=== PATIENT | female | born 2000 | race Caucasian/White ===

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

== ENCOUNTER → 2020-10-15 | Outpatient (REF) | payer OTHER ==
[~2020-10-15] MED LIST changes: +GLYCOPYRROLATE PO
== END ==
LOC: M PLALAB 07:42
PROVIDERS: ATTEND Nurse Practitioner Women's Health
DX: N89.8 Other specified noninflammatory disorders of vagina (principal); Z11.3 Encounter for screening for infections with a predominantly sexual mode of transmission

== ENCOUNTER 2021-03-06 17:20 | Emergency (ER) | payer OTHER ==
[~2021-03-06] VITALS: Ht 160 cm; Wt 67.1 kg
[2021-03-06 17:21] VITALS: BP 119/58
--- OUTSIDE RECORDS SUMMARY | 2021-03-06 17:28 | CCD ---
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 Bacitracin Zinc Topical 112:43 11/20/2020 Dose: 1 application Ointment Topical applicationGino Gregory R.N. Name Value Range Interpretation Code Description Data Romy rce(s) Supporting Document(s) ID Date Data Source [id number] 11/20/2020 12:04:00 PM EDT [facility] 1 General Instructions [facility] Emergency Department [address] [place], [place] [id number] Phone #: ext- [phone] 11/20/2020 12:04 Patient: ERICA LOPEZ Sex: F : 2000 Age: 20ySingle first degree thermal burn to the left index finger, to the left middle finger, to the left ring finger and tothe left little finger. TOTAL BSA of burn = less than 10% (approximately). BSA of 1st degree burn = lessthan 10% (approximately). BSA of 2nd degree burn = 0% BSA of 3rd degree burn = 0%.INSTRUCTIONSProtect area of burn and keep clean. Change dressing daily. Keep wounds dry. You may wash woundsbriefly, then dry. Do not work today, tomorrow ( may return to work on Monday).Warnings: GENERAL WARNINGS: Return or contact your physician immediately if your conditionworsens or changes unexpectedly, if not improving as expected, or if other problems arise. Specificallyreturn if pain or fever worsens.Your Current Medications: Your current home medications have been reviewed.CONTINUE TAKING THE FOLLOWING MEDICATIONS:Nexplanon Subcutaneous.Prescription Medications:bacitracin 500 unit/gram topical ointment Apply 1 a small amount twice a day for 10 days -- Dispense 1tube. Refills: 0. Substitution permitted.[facility] [address] [phone]. .aspirin 325 mg tablet Take 1 tablet four times a day for 10 days -- PP. Dispense 40 tablet. Refills: 0.Substitution permitted.[facility] [address] [place], [place] [phone]. .Follow-up:Follow up with your doctor as needed. Reason for referral: ev aluation and treatment. Summary of careprovided to patient.Understanding of the discharge instructions verbalized by patient. 2 General Instructions [facility] Emergency Department [address] [place] [address] Phone #: ext- [phone] 11/20/2020 12:04 Patient: ERICA LOPEZ Sex: F : 2000 Age: 20yDo not work today, tomorrow (may return to work on Monday).(Electronically signed by EDNA Herring 11/20/2020 21:44) Name Value Range Interpretation Code Description Data Romy rce(s) Supporting Document(s) ID Date Data Source [id number] 11/20/2020 12:04:00 PM EDT [facility] 1 Clinical Report - Nurses [facility] Emergency Department [address] [place] [address] Phone #: ext- [phone] 11/20/2020 12:04 Patient: ERICA LOPEZ Sex: F : 2000 Age: 20yTRIAGEAcuity: LEVEL 4.Chief Complaint: BURN TO LEFT HAND, LEFT INDEX FINGER, LEFT MIDDLE FINGER, LEFT RINGFINGER and LEFT LITTLE FINGER FROM HOT LIQUID.Alert. No acute distress.Location of injuries: left index finger, left middle finger, left ring finger and left little finger. Occurred 11:5607. ( Pt was at work and was pouring gravy when she spilled some on her left hand. 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 SEPSIS SCREEN NEGATIVE. No suspected or confirmedsigns of infection present.APRYL COMA SCORE: 15- eyes open- spontaneous (4); best verbal response- oriented (5); bestmotor response- obeys commands (6). --12:14 11/20/20 Faiza Brown R.N.12:10 11/20/20. BP: 131/71. MAP: 91. HR: 72. RR: 16. O2 saturation: 100% on room air. Pain level now:08/22. --12:14 11/20/20 Faiza Brown R.N.12:16 11/20/20. Temp: 98.2 F (oral). --12:17 11/20/20 Faiza Brown R.N.Weight: 63.5 kg stated. Height/Length: 63 inches Per Patient. BMI: 24.8. --12:09 11/20/20 Faiza Brown R.N.MedicationsNexplanon Subcutaneous. --12:15 11/20/20 Faiza Brown R.N.AllergiesNo Known Drug Allergy. --12:15 11/20/20 Faiza Brown R.N.PROBLEMS:no known problems.Medication/allergy information source: the patient. --12:14 11/20/20 Faiza Brown R.N.ADDITIONAL SURGERIES: 2 Clinical Report - Nurses [facility] Emergency Department [address] [place] [address] Phone #: ext- [phone] 11/20/2020 12:04 Patient: ERICA LOPEZ Sex: F : 2000 Age: 20y Tonsillectomy. --12:15 11/20/20 Faiza Brown R.N. History PAST MEDICAL HX: Tetanus status: up-to-date. SOCIAL HX: Never smoker. No alcohol use or drug use. She was offered HIV testing but declined. Patient education was provided. She was offered hepatitis C testing but declined. Patient education was provided. She has not traveled outside the [place] Infectious disease exposure: No infectious disease exposure. (COVID screen negative). Patient is not a known carrier of tuberculosis, hepatitis, HIV, MRSA or VRE. Patient is not a known carrier of CRE. SELF HARM ASSESSMENT: Self harm assessment was performed. The patient answe red "no" to the question(s) "Do you have thoughts of harming or killing yourself?", "Do you have a plan for harming or killing yourself?" and "Have you recently had thoughts about harming or killing others?". ABUSE ASSESSMENT: Abuse assessment. The patient had positive responses to the question(s) "Do you feel safe in your home?" (yes). Abuse denied. No suspicion of abuse. No report of abuse. NUTRITIONAL RISK ASSESSMENT: The nutritional risk assessment revealed no deficiencies. FUNCTIONAL ASSESSMENT: Functional assessment: no impairments noted. LEARNING NEEDS ASSESSMENT: The learning needs assessment revealed no barriers. FALL RISK ASSESSMENT: Fall risk assessment completed. No risk factors identified. SKIN INTEGRITY ASSESSMENT: Skin integrity risk assessment completed. No skin integrity risk identified. --12:14 11/20/20 Faiza Brown R.N. Interventions Identification band on patient. --12:14 11/20/20 Faiza Brown R.N.PHYSICAL ASSESSMENTGENERAL / NEURO / PSYCH: Alert. Oriented X 4. Appears in no acute distress.RESPIRATORY: Respirations not labored.EXTREMITIES: Skin intact on the extremities. Left ring finger: 1st degree superficial burn. Left midd lefinger. Left index finger. --12:44 11/20/20 Gino Gregory R.N.NURSING PROGRESS NOTESPatient gowned. Reassurance given. Three patient identifiers checked. Call light placed in reach. Siderails up x 2. Bed placed in lowest position. Brakes of bed on. Patient ready for evaluation- PA notified.--12:15 11/20/20 Faiza Brown R.N. 12:43 11/20/2020 Bacitracin Zinc Topical Ointment 1 application given. --12:43 11/20/20 Gino Gregory R.N. 3 Clinical Report - Nurses [facility] Emergency Department [address] [place] [address] Phone #: ext- [phone] 11/20/2020 12:04 Patient: ERICA LOPEZ Sex: F : 2000 Age: 20yDISPOSITION / DISCHARGE No learning barriers present. Discharge instructions provided and reviewed with the patient. Patient verbalized understanding. Written instructions provided in Montenegrin. The patient was discharged by the physician floral assistant. She was discharged home. She left ambulatory and via private vehicle. Patient driving. --12:50 11/20/20 Gino Gregory R.N. 12:49 11/20/20. BP: 122/64. MAP: 83. HR: 62. RR: 16. O2 saturation: 98%. Temp: def erred. Pain level now: 06/24. --12:50 11/20/20 Gino Gregory R.N. Departure time: 12:50 11/20/2020. --12:50 11/20/20 Gino Gregory R.N.Locked/Released at 11/20/2020 12:51 by Gino Gregory R.N. Name Value Range Interpretation Code Description Data Romy rce(s) Supporting Document(s) ID Date Data Source [id number] 11/20/2020 12:04:00 PM EDT [facility] 1 Clinical Report - Physicians/Mid Levels [facility] Emergency Department [address] [place] [address] Phone #: ext- [phone] 11/20/2020 12:04 Patient: ERICA LOPEZ Sex: F : 2000 Age: 20y Time Seen: 12:30 11/20/2020. Arrived- By private vehicle. Historian- patient.HISTORY OF PRESENT ILLNESS Chief Complaint: BURN. The patient sustained a burn to the left upper extremity - left hand, left index finger, left middle finger, left ring finger and left little finger. It occurred at work. The injury was due to hot liquid (gravy). The patient complains of mild pain. There was no smoke inhalation. Patient did not fall.REVIEW OF SYSTEMSLast normal menstrual period unknown- nexplanon, denies . No difficulty breathing, chest pain,visual disturbance, hearing loss or numbness. No weakness, neck pain, nausea, easy bleeding orabrasions. No hematuria, spine pain or vomiting. No coughing up soot.PAST HISTORYProblems:no known problems. Additional Surgeries: Tonsillectomy. Medications: Nexplanon Subcutaneous. Allergies: No Known Drug All ergy.SOCIAL HISTORYNever smoker. No alcohol use or drug use.PHYSICAL EXAMVital Signs: 11/20/2020 12:10 BP: 131/71. MAP: 91. HR: 72. RR: 16. O2 saturation: 100% on room air.Pain level now: 4/10. Have been reviewed as normal. Oxygen saturation normal.Appearance: Alert. Oriented X3. No acute distress.Head: Head atraumatic.Eyes: Pupils equal, round and reactive to light. EOM intact. Conjunctivae and eyelids normal.ENT: Normal external inspection. Nares normal. Pharynx normal.Neck: Neck non-tender.CVS: Heart sounds normal.Respiratory: No respiratory distress. 2 Clinical Report - Physicians/Mid Levels [facility] Emergency Department [address] [place] [address] Phone #: ext- [phone] 11/20/2020 12:04 Patient: ERICA LOPEZ Sex: F : 2000 Age: 20y Abdomen: No visible injury. Back: No tenderness. Skin: No abrasions or lacerations. Left hand: small 1st degree burn dorsal aspect and volar aspect. Left small finger: small 1st degree burn volar aspect. Left ring finger: small 1st degree burn volar aspect. Left middle finger: small 1st degree burn volar aspect. Left index finger: small 1st degree burn volar aspect. No circumferential burn present, vesicles present or contamination present. Left Upper Extremity area: 1% BSA. Percent Total Body Surface Area Burned: 1%. Extremities: Extremities atraumatic. Neuro: Oriented X 3.PROGRESS AND PROCEDURESCourse of Care: 12:Nov 20 2020. Evaluation after observation. (Discussed superficial 1st degree burn,wound care. s/s of infection and pt is agreeable with dx and tx plan.). Patient counseled in person regarding the patient's stable condition, diagnosis and need for follow-up. Patient agrees with plan of care. 12:Nov 20 2020. Disposition: Discharged home in good and improved condition (:Nov 20 2020).CLINICAL IMPRESSION Single first degree thermal burn to the left index finger, to the left middle finger, to the left ring finger and to the left little finger. TOTAL BSA of burn = less than 10% (approximately). BSA of 1st degree burn = less than 10% (approximately). BSA of 2nd degree burn = 0% BSA of 3rd degree burn = 0%.INSTRUCTIONS Protect area of burn and keep clean. Change dressing daily. Keep wounds dry. You may wash wounds briefly, then dry. Do not work today, tomorrow (may return to work on Monday). Warnings: GENERAL WARNINGS: Return or contact your physician immediately if your condition worsens or changes unexpectedly, if not improving as expected, or if other problems arise. Specifically return if pain or fever worsens. Your Current Medications: Your current home medications have been reviewed. CONTINUE TAKING THE FOLLOWING MEDICATIONS: Nexplanon Subcutaneous. Prescription Medications: bacitracin 500 unit/gram topical ointment Apply 1 a small amount twice a day for 10 days -- Dispense 1 3 Clinical Report - Physicians/Mid Levels [facility] Emergency Department [address] [place] [address] Phone #: ext- [phone] 11/20/2020 12:04 Patient: ERICA LOPEZ [id number] Sex: F : 2000 Age: 20y tube. Refills: 0. Substitution permitted. [facility] [address] [place] [address] ; [place], [place] [phone]. . aspirin 325 mg tablet Take 1 tablet four times a day for 10 days -- PP. Dispense 40 tablet. Refills: 0. Substitution permitted. [facility] [address] [place] [address] ; [place], [place] [phone]. . Follow-up: Follow up with your doctor as needed. Reason for referral: evaluation and treatment. Summary of care provided to patient. Understanding of the discharge instructions verbalized by patient.(Electronically signed by EDNA Herring 11/20/2020 21:44) Name Value Range Interpretation Code Description Data Romy rce(s) Supporting Document(s) ID Date Data Source [id number] 11/18/2020 12:00:00 AM EDT [facility] Name Value Range Interpretation Code Description Data Romy rce(s) Supporting Document(s) SARS-CoV-2 RNA Resp Ql [place]+probe Not Detected [facility] This lab was ordered by [employer]- Employee and reported by [employer]. ID Date Data Source [id number] 11/13/2020 12:00:00 AM EDT [facility] Name Value Range Interpretation Code Description Data Romy rce(s) Supporting Document(s) SARS-CoV-2 RNA Resp Ql [place]+probe Not Detected [facility] This lab was ordered by [employer]- Employee and reported by [employer]. ID Date Data Source [id number] 11/12/2020 10:05:00 AM EDT [facility] Name Value Range Interpretation Code Description Data Romy rce(s) Supporting Document(s) SARS-CoV-2 Not Detected [facility] This lab was ordered by [employer] and reported by [employer]. ID Date Data Source [id number] 11/10/2020 09:00:00 AM EDT [facility] Name Value Range Interpretation Code Description Data Romy rce(s) Supporting Document(s) SARS-CoV-2 Not Detected [facility] This lab was ordered by [email or web address] and reported by [employer]. ID Date Data Source [id number] 11/06/2020 12:00:00 AM EDT [facility] Name Value Range Interpretation Code Description Data Romy rce(s) Supporting Document(s) SARS Not Detected [facility] This lab was ordered by [employer]- Employee and reported by [email or web address] [facility] [employer]. ID Date Data Source [id number] 11/05/2020 12:00:00 AM EDT [facility] Name Value Range Interpretation Code Description Data Romy rce(s) Supporting Document(s) SARS coronavirus 2 Ag Negative [facility] This lab was ordered by [employer] and rep orted by [employer]. ID Date Data Source [id number] 11/02/2020 12:00:00 AM EDT [facility] Name Value Range Interpretation Code Description Data Romy rce(s) Supporting Document(s) SARS coronavirus 2 Ag Negative [facility] This lab was ordered by [employer] and rep orted by [employer]. ID Date Data Source [id number] 10/23/2020 11:55:00 AM EDT [facility] Name Value Range Interpretation Code Description Data Romy rce(s) Supporting Document(s) SARS-CoV-2 Not Detected [facility] This lab was ordered by [email or web address] and reported by [employer]. ID Date Data Source [id number] 10/21/2020 12:00:00 AM EDT [facility] Name Value Range Interpretation Code Description Data Romy rce(s) Supporting Document(s) SARS coronavirus 2 Ag Negative [facility] This lab was ordered by [employer] and rep orted by [employer]. ID Date Data Source [id number] 10/16/2020 12:00:00 AM EDT [facility] Name Value Range Interpretation Code Description Data Romy rce(s) Supporting Document(s) SARS coronavirus 2 Ag Negative [facility] This lab was ordered by [employer] and rep orted by [employer]. ID Date Data Source [id number] 10/15/2020 12:00:00 AM EDT [facility] Name Value Range Interpretation Code Description Data Romy rce(s) Supporting Document(s) pos whiff eCW1 ([facility]) pos Clue Cells eCW1 ([facility]) 5.5 PH eCW1 ([facility]) neg Trichomoniads eCW1 ([facility]) neg Hypae eCW1 ([facility]) WET PREP eCW1 ([facility]) neg Lactobacillus eCW1 ([facility]) neg WBC eCW1 ([facility]) few RBC eCW1 ([facility]) ID Date Data Source CHLAMYDIA & GC DNA PROBES 10/15/2020 12:00:00 AM EDT eCW1 ([facility]) Name Value Range Interpretation Code Description Data Romy rce(s) Supporting Document(s) Negative Negative GC DNA PROBE eCW1 ([facility]) Negative Negative CHLAMYDIA DNA PROBE eCW1 ([facility]) ID Date Data Source [id number] 10/14/2020 06:00:00 PM EDT [facility] Name Value Range Interpretation Code Description Data Romy rce(s) Supporting Document(s) SARS-CoV-2 Not Detected [facility] This lab was ordered by [employer] and reported by [employer]. ID Date Data Source [id number] 10/12/2020 11:00:00 AM EDT [facility] Name Value Range Interpretation Code Description Data Romy rce(s) Supporting Document(s) SARS-CoV-2 Not Detected [facility] This lab was ordered by [employer] and reported by [employer]. ID Date Data Source [id number] 10/07/2020 10:43:00 AM EDT [facility] Name Value Range Interpretation Code Description Data Romy rce(s) Supporting Document(s) SARS-CoV-2 Not Detected [facility] This lab was ordered by [employer] and reported by [employer]. ID Date Data Source [id number] 10/06/2020 10:24:00 AM EDT [facility] Name Value Range Interpretation Code Description Data Romy rce(s) Supporting Document(s) SARS-CoV-2 Not Detected [facility] This lab was ordered by [employer] and reported by [employer]. ID Date Data Source [id number] 09/28/2020 09:52:00 AM EDT [facility] Name Value Range Interpretation Code Description Data Romy rce(s) Supporting Document(s) SARS-CoV-2 Not Detected [facility] This lab was ordered by [employer] and reported by [employer]. ID Date Data Source [id number] 09/23/2020 03:24:00 PM EDT [facility] Name Value Range Interpretation Code Description Data Romy rce(s) Supporting Document(s) SARS-CoV-2 Not Detected [facility] This lab was ordered by [employer] and reported by [employer]. ID Date Data Source [id number] 09/18/2020 12:00:00 AM EDT [facility] Name Value Range Interpretation Code Description Data Romy rce(s) Supporting Document(s) SARS coronavirus 2 Ag Negative [facility] This lab was ordered by [facility] and rep orted by [employer]. ID Date Data Source [id number] 09/16/2020 12:00:00 AM EDT [facility] Name Value Range Interpretation Code Description Data Romy rce(s) Supporting Document(s) SARS Not Detected [facility] This lab was ordered by [facility] for [employer]-EMPLOYEE and reported by [employer]. ID Date Data Source [id number] 09/09/2020 12:00:00 AM EDT [facility] Name Value Range Interpretation Code Description Data Romy rce(s) Supporting Document(s) SARS Not Detected [facility] This lab was ordered by [facility]- Employee and reported by [employer]. ID Date Data Source [id number] 09/07/2020 12:00:00 AM EDT [facility] Name Value Range Interpretation Code Description Data Romy rce(s) Supporting Document(s) SARS coronavirus 2 Ag Negative [facility] This lab was ordered by [facility] and rep orted by [employer]. ID Date Data Source [id number] 08/31/2020 12:00:00 AM EDT [facility] Name Value Range Interpretation Code Description Data Romy rce(s) Supporting Document(s) SARS coronavirus 2 Ag Negative [facility] This lab was ordered by [employer] and orted by [employer]. ID Date Data Source [id number] 08/26/2020 01:55:00 PM EDT [facility] Name Value Range Interpretation Code Description Data Romy rce(s) Supporting Document(s) SARS-CoV-2 Not Detected [facility] This lab was ordered by [email or web address] and reported by [employer]. ID Date Data Source [id number] 08/25/2020 12:00:00 AM EDT [facility] Name Value Range Interpretation Code Description Data Romy rce(s) Supporting Document(s) SARS coronavirus 2 Ag Negative [facility] This lab was ordered by [employer] and orted by [employer]. ID Date Data Source [id number] 08/19/2020 09:49:00 AM EDT [facility] Name Value Range Interpretation Code Description Data Romy rce(s) Supporting Document(s) SARS-CoV-2 Not Detected [facility] This lab was ordered by [email or web address] and reported by [employer]. ID Date Data Source [id number] 08/18/2020 12:00:00 AM EDT [facility] Name Value Range Interpretation Code Description Data Romy rce(s) Supporting Document(s) SARS coronavirus 2 Ag Negative [facility] This lab was ordered by [employer] and rep orted by [employer]. ID Date Data Source [id number] 08/14/2020 02:36:00 PM EDT [facility] Name Value Range Interpretation Code Description Data Romy rce(s) Supporting Document(s) SARS-CoV-2 Not Detected [facility] This lab was ordered by [email or web address] and reported by [employer]. ID Date Data Source [id number] 08/13/2020 01:51:00 PM EDT [facility] Name Value Range Interpretation Code Description Data Romy rce(s) Supporting Document(s) SARS-CoV-2 Not Detected [facility] This lab was ordered by [email or web address] and reported by [employer]. ID Date Data Source [id number] 08/10/2020 12:00:00 AM EDT [facility] Name Value Range Interpretation Code Description Data Romy rce(s) Supporting Document(s) SARS coronavirus 2 Ag Negative [facility] This lab was ordered by [facility] and rep orted by [facility]. ID Date Data Source [id number] 08/03/2020 12:00:00 AM EDT [facility] Name Value Range Interpretation Code Description Data Romy rce(s) Supporting Document(s) SARS coronavirus 2 Ag Negative [facility] This lab was ordered by [facility] and rep orted by [facility]. ID Date Data Source [id number] 07/29/2020 12:00:00 AM EDT [facility] Name Value Range Interpretation Code Description Data Romy rce(s) Supporting Document(s) SARS Not Detected [facility] This lab was ordered by [employer]- Employee and reported by [facility] [facility] [employer]. ID Date Data Source [id number] 07/27/2020 12:00:00 AM EDT [facility] Name Value Range Interpretation Code Description Data Romy rce(s) Supporting Document(s) SARS coronavirus 2 Ag Negative [facility] This lab was ordered by [facility] and rep orted by [employer]. ID Date Data Source [id number] 07/24/2020 12:00:00 AM EST [facility] Name Value Range Interpretation Code Description Data Romy rce(s) Supporting Document(s) SARS coronavirus 2 Ag Negative [facility] This lab was ordered by [facility] and rep orted by [employer]. ID Date Data Source [id number] 07/21/2020 12:00:00 AM EST [facility] Name Value Range Interpretation Code Description Data Romy rce(s) Supporting Document(s) SARS coronavirus 2 Ag Negative [facility] This lab was ordered by [facility] and rep orted by [facility]. ID Date Data Source [id number] 07/16/2020 12:00:00 AM EST [facility] Name Value Range Interpretation Code Description Data Romy rce(s) Supporting Document(s) SARS coronavirus 2 pcr Negative [facility] This lab was ordered by [facility] and rep orted by [facility]. ID Date Data Source [id number] 07/14/2020 12:00:00 AM EST [facility] Name Value Range Interpretation Code Description Data Romy rce(s) Supporting Document(s) SARS coronavirus 2 pcr Negative [facility] This lab was ordered by [facility] and rep orted by [facility]. ID Date Data Source [id number] 07/09/2020 12:00:00 AM EST [facility] Name Value Range Interpretation Code Description Data Romy rce(s) Supporting Document(s) SARS coronavirus 2 pcr Negative [facility] This lab was ordered by [facility] and rep orted by [facility]. ID Date Data Source [id number] 07/06/2020 12:00:00 AM EST [facility] Name Value Range Interpretation Code Description Data Romy rce(s) Supporting Document(s) SARS coronavirus 2 pcr Negative [facility] This lab was ordered by [facility] and rep orted by [facility]. ID Date Data Source [id number] 06/29/2020 12:00:00 AM EST [facility] Name Value Range Interpretation Code Description Data Romy rce(s) Supporting Document(s) SARS coronavirus 2 pcr Negative [facility] This lab was ordered by [facility] and rep orted by [facility]. ID Date Data Source [id number] 06/25/2020 12:00:00 AM EST [facility] Name Value Range Interpretation Code Description Data Romy rce(s) Supporting Document(s) SARS Not Detected [facility] This lab was ordered by [employer] [facility] Employee and reported by [facility]. ID Date Data Source [id number] 06/25/2020 12:00:00 AM EST [facility] Name Value Range Interpretation Code Description Data Romy rce(s) Supporting Document(s) SARS coronavirus 2 pcr Negative [facility] This lab was ordered by [facility] and rep orted by [facility]. ID Date Data Source [id number] 06/10/2020 05:00:00 PM EST [facility] Name Value Range Interpretation Code Description Data Romy rce(s) Supporting Document(s) SARS-CoV-2 Not Detected [facility] This lab was ordered by [email or web address] and reported by [facility]. ID Date Data Source [id number] 06/03/2020 12:00:00 AM EST [facility] Name Value Range Interpretation Code Description Data Romy rce(s) Supporting Document(s) SARS coronavirus 2 (SARS-CoV-2) Negative [facility] This lab was ordered by [facility] and reported by [email or web address]. ID Date Data Source [id number] 05/28/2020 12:00:00 AM EST [facility] Name Value Range Interpretation Code Description Data Romy rce(s) Supporting Document(s) SARS coronavirus 2 (SARS-CoV-2) Negative [facility] This lab was ordered by [facility] and reported by [email or web address]. ID Date Data Source [id number] 05/13/2020 12:00:00 AM EST [facility] Name Value Range Interpretation Code Description Data Romy rce(s) Supporting Document(s) SARS Not Detected [facility] This lab was ordered by [employer] [facility]- Employee and reported by [employer]. ID Date Data Source [id number] 05/10/2020 03:29:00 PM EST [facility] Name Value Range Interpretation Code Description Data Romy rce(s) Supporting Document(s) SARS-CoV-2 [facility] This lab was ordered by [facility] and reported by [facility]. ID Date Data Source [id number] 05/06/2020 07:58:00 AM EST [facility] Name Value Range Interpretation Code Description Data Romy rce(s) Supporting Document(s) SARS-CoV-2 [facility] This lab was ordered by [facility] and reported by [employer]. ID Date Data Source [id number] 04/08/2020 03:16:00 PM EST [facility] Name Value Range Interpretation Code Description Data Romy rce(s) Supporting Document(s) SARS-CoV-2 [facility] This lab was ordered by [facility] and reported by [employer]. ID Date Data Source [id number] 03/22/2020 12:00:00 AM EST [facility] Name Value Range Interpretation Code Description Data Romy rce(s) Supporting Document(s) SARS [facility] This lab was ordered by [employer]- Employee and reported by [employer]. ID Date Data Source [id number] 03/11/2020 12:00:00 AM EDT [facility] Name Value Range Interpretation Code Description Data Romy rce(s) Supporting Document(s) SARS [facility] This lab was ordered by [employer]- Employee and reported by [employer]. ID Date Data Source [id number] 03/09/2020 12:00:00 AM EDT [facility] Name Value Range Interpretation Code Description Data Romy rce(s) Supporting Document(s) SARS [facility] This lab was ordered by [employer]- Employee and reported by [employer]. ID Date Data Source [id number] 02/26/2020 01:36:00 PM EDT [facility] Name Value Range Interpretation Code Description Data Romy rce(s) Supporting Document(s) SARS-CoV-2 [facility] This lab was ordered by [facility] and reported by [facility]. ID Date Data Source [id number] 02/19/2020 03:10:00 PM EDT [facility] Name Value Range Interpretation Code Description Data Romy rce(s) Supporting Document(s) SARS-CoV-2 [facility] This lab was ordered by [facility] and reported by [facility]. ID Date Data Source [id number] 02/07/2020 12:12:00 PM EDT [facility] Name Value Range Interpretation Code Description Data Romy rce(s) Supporting Document(s) SARS-CoV-2 [facility] This lab was ordered by [facility] and reported by [facility]. ID Date Data Source [id number] 01/29/2020 10:14:00 AM EDT [facility] Name Value Range Interpretation Code Description Data Romy rce(s) Supporting Document(s) SARS-CoV-2 [facility] This lab was ordered by [facility] and reported by [facility]. ID Date Data Source [id number] 01/22/2020 03:40:00 PM EDT [facility] Name Value Range Interpretation Code Description Data Romy rce(s) Supporting Document(s) SARS-CoV-2 [facility] This lab was ordered by [facility] and reported by [facility]. ID Date Data Source [id number] 01/15/2020 04:30:00 PM EDT [facility] Name Value Range Interpretation Code Description Data Romy rce(s) Supporting Document(s) SARS-CoV-2 [facility] This lab was ordered by [facility] and reported by [facility]. ID Date Data Source [id number] 01/08/2020 12:00:00 AM EDT [facility] Name Value Range Interpretation Code Description Data Romy rce(s) Supporting Document(s) 2019-nCoV RNA XXX [place]+probe-Imp [facility] This lab was ordered by [facility] and repo rted by [facility]. Procedure Social History Code Duration Value Status Description Data Source(s ) 02/23/2021 12:00:00 AM EDT Current non-smoker completed C urrent non-smoker [facility] ([facility]) Smoking 02/23/2021 12:00:00 AM EDT Never smoker completed Never s moker [facility] ([facility]) Smoking 10/15/2020 12:00:00 AM EDT Never Smoker completed Never S moker eCW1 ([facility]) Smoking 10/09/2020 12:00:00 AM EDT Never Smoker completed Never S moker eCW1 ([facility]) Smoking 10/09/2020 12:00:00 AM EDT Never Smoker completed Never S moker eCW1 ([facility]) Smoking 10/05/2020 12:00:00 AM EDT Never Smoker completed Never S moker eCW1 ([facility]) Vital Signs ID Date Data Source UNK Name Value Range Interpretation Code Description Data Source(s) Body height 160.02 cm 160.02 cm [facility] ([facility] Body weight 65.227 kg 65.227 kg [facility] ([facility]) Systolic blood pressure 120 mm[Hg] 120 mm[Hg] N extGen ([facility]) Diastolic blood pressure 78 mm[Hg] 78 mm[Hg] [facility] ([facility]) Body mass index (BMI) [Ratio] 25.47 kg/m2 Overweight 25.47 kg/m2 Next[facility] ([facility]) Body weight 138 [lb_av] 138 [lb_av] eCW1 ([facility]) Body weight 62.6 kg 62.6 kg eCW1 ([facility]) Body height 63 [in_i] 63 [in_i] eCW1 ([facility]) Body mass index (BMI) [Ratio] 24.44 kg/m2 24.44 kg/m2 eCW1 ([facility]) Systolic blood pressure 118 mm[Hg] 118 mm[Hg] e CW1 ([facility]) Diastolic blood pressure 76 mm[Hg] 76 mm[Hg] eCW1 ([facility]) Diastolic blood pressure 78 mm[Hg] 78 mm[Hg] eCW1 ([facility]) Body weight 137.2 [lb_av] 137.2 [lb_av] eCW1 ([facility]) Body height 63 [in_i] 63 [in_i] eCW1 ([facility]) Body mass index (BMI) [Ratio] 24.30 kg/m2 24.30 kg/m2 eCW1 ([facility]) Systolic blood pressure 110 mm[Hg] 110 mm[Hg] e CW1 ([facility]) Body weight 140 [lb_av] 140 [lb_av] eCW1 ([facility]) Body weight 63.5 kg 63.5 kg eCW1 ([facility]) Body height 63 [in_i] 63 [in_i] eCW1 ([facility]) Body mass index (BMI) [Ratio] 24.8 kg/m2 24.8 k g/m2 eCW1 ([facility]) Systolic blood pressure 114 mm[Hg] 114 mm[Hg] e CW1 ([facility]) Diastolic blood pressure 74 mm[Hg] 74 mm[Hg] eCW1 ([facility]) Patient Treatment Plan of Care Planned Activity Planned Date Details Description Data Source (s) Metronidazole 0.0075 MG/MG Vaginal Gel [MetroGel] 02/23/2021 12: 00:00 AM EDT [facility] ([facility]) Metronidazole 0.0075 MG/MG Vaginal Gel 10/15/2020 12:00:00 AM EDT eCW1 ([facility]) Terbinafine HCl 1 % 10/09/2020 12:00:00 AM EDT eCW1 ([facility]) Naftifine hydrochloride 10 MG/ML Topical Cream 10/09/2020 12:00:00 AM EDT eCW1 ([facility]) Terbinafine HCl 1 % 10/09/2020 12:00:00 AM EDT eCW1 ([facility]) Naftifine hydrochloride 10 MG/ML Topical Cream 10/09/2020 12:00:00 AM EDT eCW1 ([facility]) Fluconazole 150 MG Oral Tablet 10/05/2020 12:00:00 AM EDT eCW1 ([facility])
--- OUTSIDE RECORDS SUMMARY | 2021-03-06 17:28 | CCD | Continuity of Care Document ---
Author Author [facility] Organization [facility] Address Unknown Phone Unavailable Care Team Providers Care Lead Recreation Assistant Name Role Phone Dwello Lili BISHOP Unavailable Unavailable Allergies, Adverse Reactions, Alerts Substance Reaction Status Criticality No Known Allergies Active No Information Medications Medication Instructions Dosage Effective Dates (start - stop) Sta tus Comments Metrogel Vaginal 0.75 % insert 1 applicatorful by va ginal route every day at bedtime x 5 nights - Active glycopyrrolate 1 mg tablet - Active Nexplanon 68 mg subdermal implant - Ac tive Problems Condition Effective Dates (start - stop) Clinical Status C omments Human immunodeficiency virus [HIV] counseling Other sex counseling Encounter for oth general cnsl and advice on contraception Encntr screen for infections w sexl mode of transmiss Other specified noninflammatory disorders of vagina Acute vaginitis Encounter for screening for human immunodeficiency virus 2020 - Other sex counseling Encounter for oth general cnsl and advice on contraception Human immunodeficiency virus [HIV] counseling Encntr screen for infections w sexl mode of transmiss High risk heterosexual behavior Acute vaginitis Encounter for test, result negative Other sex counseling Encounter for oth general cnsl and advice on contraception Acute vaginitis Encntr screen for infections w sexl mode of transmiss High risk heterosexual behavior High risk heterosexual behavior Encntr screen for infections w sexl mode of transmiss Encounter for test, result negative Other sex counseling Encounter for oth general cnsl and advice on contraception Encounter for test, result negative Dysuria Encounter for oth general cnsl and advice on contraception Encounter for surveillance of contraceptive pills Encntr screen for infections w sexl mode of transmiss Other sex counseling High risk heterosexual behavior Candidiasis of vulva and vagina Human immunodeficiency virus [HIV] counseling Encntr for 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 assistant 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) (routine) w/o abn findings Encounter for oth general cnsl and advice on contraception Encounter for surveillance of contraceptive pills Human immunodeficiency virus [HIV] counseling Encounter for test, result negative Encntr screen for infections w sexl mode of transmiss High risk heterosexual behavior Encounter for oth general cnsl and advice on contraception Encounter for initial prescription of contraceptive pills Encounter for screening for human immunodeficiency virus Procedures Procedure Date ROUTINE VENIPUNCTURE OFFICE VISIT, EST CHYLMD TRACH, SWAB N.GONORRHOEAE, SWAB HTLV/HIV SERUM TEST SYPHILLIS BLOOD SEROLOGY, QUALITATIVE ASSAY OF BODY FLUID ACIDITY SMEAR, WET MOUNT, SALINE/INK CVR Blood Pressure CVR Med.Svc. Height/Weight CVR Med.Svc. Vaginitis Rx CVR Rotary Drill Rig Operator.Svc. Contraceptive CVR Rotary Drill Rig Operator.Svc. Other CVR Rotary Drill Rig Operator.Svc. STI / H Results Test Name Date and Time Measure Units Reference Range Abnormal Flag St atus Comments Panel Description: Wet Prep Final Wet Prep 15:46:57 Hyphae/Carmenza: no; Budding yeast: no; Trich: no; Clue cells: yes (>=20%); WBCs: no; Amine/Whiff test: positive; pH: 5.5 A Final Panel Description: Vaginal pH Final Vaginal pH 15:46:40 pH: 5.5. Final Advance Directives Directive Yes / No Effective Date File Name No Information Encounters Encounter Description Practice Location Reason(s) For Visit Diagnose s Date Provider Providers Copied on Encounter OFFICE VISIT, EST [facility], [address], [place], [id number], tel:[phone] [facility] [place] Vaginal Discharge (chief complaint)Vaginal Odor (chief complaint) Human immunodeficiency virus [HIV] counselingOther sex counselingEncounter for oth general cnsl and advice on contraceptionEncntr screen for infections w sexl mode of transmissOther specified noninflammatory disorders of vaginaAcute vaginitisEncounter for screening for human immunodeficiency virus Van Cole. [address] [place] [address], [id number], [place]. tel:[phone] Referring Provider: Lili Araujo, [address] [place] [address], [id number]. tel:[phone] [facility], [address] [place] [address], [id number], [place] tel:[phone] [facility] [place] Other sex counselin gEncounter for oth general cnsl and advice on contraceptionHuman immunodeficiency virus [HIV] counselingEncntr screen for infections w sexl mode of transmissHigh risk heterosexual behaviorAcute vaginitis Kayy Crocker. [address] [place], [place], [id number], [place]. tel:[phone] Referring Provider: Lizzette Sultana, [address] [place] [address], [id number]. tel:[phone] [facility], [address] [place] [address], [id number], [place] tel:[phone] [facility] [place] Encounter for pregn leonardo test, result negativeOther sex counselingEncounter for oth general cnsl and advice on contraceptionAcute vaginitisEncntr screen for infections w sexl mode of transmissHigh risk heterosexual behavior Luis F gonzales. [address] [place] [address], [id number], [place]. tel:[phone] Referring Provider: Ashtyn Kerns, [address] [place] [address], [id number]. tel:[phone] [facility], [address] [place] [address], [id number], [place] tel:[phone] [facility] [place] High risk heterosex ual behaviorEncntr screen for infections w sexl mode of transmissEncounter for test, result negativeOther sex counselingEncounter for oth general cnsl and advice on contraception Brendan Diaz. [address] [facility], [place], [place], [id number], [place]. tel:[phone] Referring Provider: Emily Cardona, [address] [place], [place], [id number]. tel:[phone] [facility], [address], [place], [id number], [place] tel:[phone] [facility] [place] Encounter for pregn leonardo test, result negativeDysuriaEncounter for oth general cnsl and advice on contraceptionEncounter for surveillance of contraceptive pillsEncntr screen for infections w sexl mode of transmissOther sex counselingHigh risk heterosexual behaviorCandidiasis of vulva and vagina Brendan Diaz. [address], [place], [id number], [place]. tel:[phone] Referring Provider: Emily Cardona, [address], [place], [id number]. tel:[phone] [facility], [address] [place] [address], [id number], [place] tel:[phone] [facility] [place] Human immunodeficie ncy virus [HIV] counselingEncntr for 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 lab assistant 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) (routine) w/o abn findingsEncounter for oth general cnsl and advice on contraceptionEncounter for surveillance of contraceptive pills King Justina. [address], [place], [id number]. tel:[phone] Referring Provider: Justina Tucker, [address], [place], [id number]. tel:[phone] [facility], [address], [place], [id number], [place] tel:[phone] [facility] [place] Human immunodeficie ncy virus [HIV] counselingEncounter for test, result negativeEncntr screen for infections w sexl mode of transmissHigh risk heterosexual behaviorEncounter for oth general cnsl and advice on contraceptionEncounter for initial prescription of contraceptive pillsEncounter for screening for human immunodeficiency virus King Justina. [address] [place] [address], [id number]. tel:[phone] Referring Provider: Justina Tucker, [address], [place], [id number]. tel:[phone] Family History Family Member Diagnosis Age At Onset Brother No history of Stroke Sister No history of Myocardial infarction Brother No history of Myocardial infarction 1st degree relative No hx of cancer of breast, colon, endome trium or ovary Maternal grandmother Cancer Maternal grandmother Cancer, throat Mother No history of Stroke Paternal grandmother Diabetes mellitus 1st degree relative No hx of coronary heart disease (female <65, male <55) Mother No history of Myocardial infarction 1st degree relative No hx of osteoporosis Maternal grandmother Cancer, lung Father No history of Myocardial infarction Sister No history of Stroke 1st degree relative No hx of venous thromboembolism Father No history of Stroke Immunizations Vaccine Date Status Comments No Information Payers Payer name Insurance type Covered constitution party ID Authorization(s ) [facility] CI [id number] Social History Type Description Quantity Date Captured Comments Alcohol Use Details Unknown Caffeine Use Details Unknown Tobacco Use Status Current non-smoker Smoking Status Never smoker Non-Smoking Tobacco Use Details : No Details Available : No Details Available Sex Female Vital Signs Date / Time: Height Weight BMI Pulse Rate Blood Pressure Temperatu re Respiratory Rate Body Surface Area Head Circumference BMI percentile Pulse Ox In haled Ox 3:17 PM 63.00 in 143.80 lbs 25.47 kg/meter(2) 120/78 m m[Hg] Chief Complaint And Reason For Visit Most recent encounter only, dated '02/23/2021 15:15'. Vaginal Discharge (chief complaint) Vaginal Odor (chief complaint) Reason For Referral Reason For Referral No Information Plan Of Treatment Date Type Action Status No Information History Of Present Illness Encounter Date Complaint History Of Present I llness No Information Functional Status Date Functional Assessment No Information Medications Administered Medication Instructions Dosage Effective Dates (start - stop) Sta tus Comments No Information Instructions Date Instruction Additional Informati on No Information Assessments Type Assessment Date assessment Human immunodeficiency virus [HIV] couns eling assessment Other sex counseling assessment Encounter for oth general cnsl and advic e on contraception assessment Encntr screen for infections w sexl mode of transmiss assessment Other specified noninflammatory disorder s of vagina assessment Acute vaginitis Goals Health Concern Goal Type Priority Status Date No Information Medical Equipment Description Device [place] Device Identifier Effective Omega es (start - stop) Status No Information Mental Status Date Cognitive Assessment No Information Health Concerns Observation Date No Information Concern Status Date No Information Physical Examination Exam Findings Details Neurological Normal Level of consciousne ss - Normal. Orientation - Normal. Genitourinary Normal Urethral meatus - No rmal. Urethra - Normal. External genitalia - Normal. Cervix - Normal. Genitourinary * Vagina - white cream y discharge w/ odor.
--- OUTSIDE RECORDS SUMMARY | 2021-03-06 20:41 | CCD ---
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 [facility] Name Value Range Interpretation Code Description Data Romy rce(s) Supporting Document(s) SARS-CoV-2 Not Detected [facility] This lab was ordered by [facility] and reported by [employer]. ID Date Data Source [id number] 10/12/2020 11:00:00 AM EDT [facility] Name Value Range Interpretation Code Description Data Romy rce(s) Supporting Document(s) SARS-CoV-2 Not Detected [facility] This lab was ordered by [facility] and reported by [employer]. ID Date Data Source [id number] 10/07/2020 10:43:00 AM EDT [facility] Name Value Range Interpretation Code Description Data Romy rce(s) Supporting Document(s) SARS-CoV-2 Not Detected [facility] This lab was ordered by [facility] and reported by [employer]. ID Date Data Source [id number] 10/06/2020 10:24:00 AM EDT [facility] Name Value Range Interpretation Code Description Data Romy rce(s) Supporting Document(s) SARS-CoV-2 Not Detected [facility] This lab was ordered by [facility] and reported by [employer]. ID Date Data Source [id number] 09/28/2020 09:52:00 AM EDT [facility] Name Value Range Interpretation Code Description Data Romy rce(s) Supporting Document(s) SARS-CoV-2 Not Detected [facility] This lab was ordered by [facility] and reported by [employer]. ID Date Data Source [id number] 09/23/2020 03:24:00 PM EDT [facility] Name Value Range Interpretation Code Description Data Romy rce(s) Supporting Document(s) SARS-CoV-2 Not Detected [facility] This lab was ordered by [facility] and reported by [employer]. ID Date Data Source [id number] 09/18/2020 12:00:00 AM EDT [facility] Name Value Range Interpretation Code Description Data Romy rce(s) Supporting Document(s) SARS coronavirus 2 Ag Negative [facility] This lab was ordered by [place] and rep orted by [employer]. ID Date Data Source [id number] 09/16/2020 12:00:00 AM EDT [facility] Name Value Range Interpretation Code Description Data Romy rce(s) Supporting Document(s) SARS Not Detected [facility] This lab was ordered by [facility] for [facility]-EMPLOYEE and reported by [employer]. ID Date Data Source [id number] 09/09/2020 12:00:00 AM EDT [facility] Name Value Range Interpretation Code Description Data Romy rce(s) Supporting Document(s) SARS Not Detected [facility] This lab was ordered by [facility]- Employee and reported by [employer]. ID Date Data Source [id number] 09/07/2020 12:00:00 AM EDT [facility] Name Value Range Interpretation Code Description Data Romy rce(s) Supporting Document(s) SARS coronavirus 2 Ag Negative [facility] This lab was ordered by [place] and rep orted by [employer]. ID Date Data Source [id number] 08/31/2020 12:00:00 AM EDT [facility] Name Value Range Interpretation Code Description Data Romy rce(s) Supporting Document(s) SARS coronavirus 2 Ag Negative [facility] This lab was ordered by [facility] and orted by [facility]. ID Date Data Source [id number] 08/26/2020 01:55:00 PM EDT [facility] Name Value Range Interpretation Code Description Data Romy rce(s) Supporting Document(s) SARS-CoV-2 Not Detected [facility] This lab was ordered by [employer] [employer] and reported by [employer]. ID Date Data Source [id number] 08/25/2020 12:00:00 AM EDT [facility] Name Value Range Interpretation Code Description Data Romy rce(s) Supporting Document(s) SARS coronavirus 2 Ag Negative [facility] This lab was ordered by [facility] and orted by [facility]. ID Date Data Source [id number] 08/19/2020 09:49:00 AM EDT [facility] Name Value Range Interpretation Code Description Data Romy rce(s) Supporting Document(s) SARS-CoV-2 Not Detected [facility] This lab was ordered by [employer] [employer] and reported by [employer]. ID Date Data Source [id number] 08/18/2020 12:00:00 AM EDT [facility] Name Value Range Interpretation Code Description Data Romy rce(s) Supporting Document(s) SARS coronavirus 2 Ag Negative [facility] This lab was ordered by [facility] and rep orted by [employer]. ID Date Data Source [id number] 08/14/2020 02:36:00 PM EDT [facility] Name Value Range Interpretation Code Description Data Romy rce(s) Supporting Document(s) SARS-CoV-2 Not Detected [facility] This lab was ordered by [facility] [facility] and reported by [employer]. ID Date Data Source [id number] 08/13/2020 01:51:00 PM EDT [facility] Name Value Range Interpretation Code Description Data Romy rce(s) Supporting Document(s) SARS-CoV-2 Not Detected [facility] This lab was ordered by [employer] [employer] and reported by [employer]. ID Date Data Source [id number] 08/10/2020 12:00:00 AM EDT [facility] Name Value Range Interpretation Code Description Data Romy rce(s) Supporting Document(s) SARS coronavirus 2 Ag Negative [facility] This lab was ordered by [place] and rep orted by [place]. ID Date Data Source [id number] 08/03/2020 12:00:00 AM EDT [facility] Name Value Range Interpretation Code Description Data Romy rce(s) Supporting Document(s) SARS coronavirus 2 Ag Negative [facility] This lab was ordered by [place] and rep orted by [place]. ID Date Data Source [id number] 07/29/2020 12:00:00 AM EDT [facility] Name Value Range Interpretation Code Description Data Romy rce(s) Supporting Document(s) SARS Not Detected [facility] This lab was ordered by [employer]- Employee and reported by [employer] [facility] [email or web address]. ID Date Data Source [id number] 07/27/2020 12:00:00 AM EDT [facility] Name Value Range Interpretation Code Description Data Romy rce(s) Supporting Document(s) SARS coronavirus 2 Ag Negative [facility] This lab was ordered by [place] and rep orted by [employer]. ID Date Data Source [id number] 07/24/2020 12:00:00 AM EST [facility] Name Value Range Interpretation Code Description Data Romy rce(s) Supporting Document(s) SARS coronavirus 2 Ag Negative [facility] This lab was ordered by [place] and rep orted by [employer]. ID Date Data Source [id number] 07/21/2020 12:00:00 AM EST [facility] Name Value Range Interpretation Code Description Data Romy rce(s) Supporting Document(s) SARS coronavirus 2 Ag Negative [facility] This lab was ordered by [place] and rep orted by [employer]. ID Date Data Source [id number] 07/16/2020 12:00:00 AM EST [facility] Name Value Range Interpretation Code Description Data Romy rce(s) Supporting Document(s) SARS coronavirus 2 pcr Negative [facility] This lab was ordered by [place] and rep orted by [employer]. ID Date Data Source [id number] 07/14/2020 12:00:00 AM EST [facility] Name Value Range Interpretation Code Description Data Romy rce(s) Supporting Document(s) SARS coronavirus 2 pcr Negative [facility] This lab was ordered by [facility] and rep orted by [employer]. ID Date Data Source [id number] 07/09/2020 12:00:00 AM EST [facility] Name Value Range Interpretation Code Description Data Romy rce(s) Supporting Document(s) SARS coronavirus 2 pcr Negative [facility] This lab was ordered by [facility] and rep orted by [employer]. ID Date Data Source [id number] 07/06/2020 12:00:00 AM EST [facility] Name Value Range Interpretation Code Description Data Romy rce(s) Supporting Document(s) SARS coronavirus 2 pcr Negative [facility] This lab was ordered by [facility] and rep orted by [employer]. ID Date Data Source [id number] 06/29/2020 12:00:00 AM EST [facility] Name Value Range Interpretation Code Description Data Romy rce(s) Supporting Document(s) SARS coronavirus 2 pcr Negative [facility] This lab was ordered by [facility] and rep orted by [employer]. ID Date Data Source [id number] 06/25/2020 12:00:00 AM EST [facility] Name Value Range Interpretation Code Description Data Romy rce(s) Supporting Document(s) SARS Not Detected [facility] This lab was ordered by [employer] [facility]- Employee and reported by [employer] [facility] [employer]. ID Date Data Source [id number] 06/25/2020 12:00:00 AM EST [facility] Name Value Range Interpretation Code Description Data Romy rce(s) Supporting Document(s) SARS coronavirus 2 pcr Negative [facility] This lab was ordered by [facility] and rep orted by [employer]. ID Date Data Source [id number] 06/10/2020 05:00:00 PM EST [facility] Name Value Range Interpretation Code Description Data Romy rce(s) Supporting Document(s) SARS-CoV-2 Not Detected [facility] This lab was ordered by [employer] [facility] and reported by [employer]. ID Date Data Source [id number] 06/03/2020 12:00:00 AM EST [facility] Name Value Range Interpretation Code Description Data Romy rce(s) Supporting Document(s) SARS coronavirus 2 (SARS-CoV-2) Negative [facility] This lab was ordered by [facility] and reported by [employer]. ID Date Data Source [id number] 05/28/2020 12:00:00 AM EST [facility] Name Value Range Interpretation Code Description Data Romy rce(s) Supporting Document(s) SARS coronavirus 2 (SARS-CoV-2) Negative [facility] This lab was ordered by [facility] and reported by [employer]. ID Date Data Source [id number] 05/13/2020 12:00:00 AM EST [facility] Name Value Range Interpretation Code Description Data Romy rce(s) Supporting Document(s) SARS Not Detected [facility] This lab was ordered by [employer] [facility]- Employee and reported by [employer]. ID Date Data Source [id number] 05/10/2020 03:29:00 PM EST [facility] Name Value Range Interpretation Code Description Data Romy rce(s) Supporting Document(s) SARS-CoV-2 [facility] This lab was ordered by [facility] and reported by [employer]. ID Date Data Source [id number] 05/06/2020 07:58:00 AM EST [facility] Name Value Range Interpretation Code Description Data Romy rce(s) Supporting Document(s) SARS-CoV-2 [facility] This lab was ordered by [facility] and reported by [employer]. ID Date Data Source [id number] 04/08/2020 03:16:00 PM EST [facility] Name Value Range Interpretation Code Description Data Romy rce(s) Supporting Document(s) SARS-CoV-2 [facility] This lab was ordered by [facility] and reported by [employer]. ID Date Data Source [id number] 03/22/2020 12:00:00 AM EST [facility] Name Value Range Interpretation Code Description Data Romy rce(s) Supporting Document(s) SARS [facility] This lab was ordered by [employer]- Employee and reported by [employer]. ID Date Data Source [id number] 03/11/2020 12:00:00 AM EDT [facility] Name Value Range Interpretation Code Description Data Romy rce(s) Supporting Document(s) SARS [facility] This lab was ordered by [employer]- Employee and reported by [employer]. ID Date Data Source [id number] 03/09/2020 12:00:00 AM EDT [facility] Name Value Range Interpretation Code Description Data Romy rce(s) Supporting Document(s) SARS [facility] This lab was ordered by [employer] [facility]- Employee and reported by [employer]. ID Date Data Source [id number] 02/26/2020 01:36:00 PM EDT [facility] Name Value Range Interpretation Code Description Data Romy rce(s) Supporting Document(s) SARS-CoV-2 [facility] This lab was ordered by [facility] and reported by [employer]. ID Date Data Source [id number] 02/19/2020 03:10:00 PM EDT [facility] Name Value Range Interpretation Code Description Data Romy rce(s) Supporting Document(s) SARS-CoV-2 [facility] This lab was ordered by [facility] and reported by [employer]. ID Date Data Source [id number] 02/07/2020 12:12:00 PM EDT [facility] Name Value Range Interpretation Code Description Data Romy rce(s) Supporting Document(s) SARS-CoV-2 [facility] This lab was ordered by [facility] and reported by [employer]. ID Date Data Source [id number] 01/29/2020 10:14:00 AM EDT [facility] Name Value Range Interpretation Code Description Data Romy rce(s) Supporting Document(s) SARS-CoV-2 [facility] This lab was ordered by [facility] and reported by [employer]. ID Date Data Source [id number] 01/22/2020 03:40:00 PM EDT [facility] Name Value Range Interpretation Code Description Data Romy rce(s) Supporting Document(s) SARS-CoV-2 [facility] This lab was ordered by [facility] and reported by [employer]. ID Date Data Source [id number] 01/15/2020 04:30:00 PM EDT [facility] Name Value Range Interpretation Code Description Data Romy rce(s) Supporting Document(s) SARS-CoV-2 [facility] This lab was ordered by [facility] and reported by [employer]. ID Date Data Source [id number] 01/08/2020 12:00:00 AM EDT [facility] Name Value Range Interpretation Code Description Data Romy rce(s) Supporting Document(s) 2019-nCoV RNA XXX [place]+probe-Imp [facility] This lab was ordered by [facility] and repo rted by [employer]. Procedure Social History Code Duration Value Status Description Data Source(s ) 02/23/2021 12:00:00 AM EDT Current non-smoker completed C urrent non-smoker [facility] ([facility]) Smoking 02/23/2021 12:00:00 AM EDT Never smoker completed Never s moker [facility] ([facility]) Smoking 10/15/2020 12:00:00 AM EDT Never Smoker completed Never S moker eCW1 ([facility]) Smoking 10/09/2020 12:00:00 AM EDT Never Smoker completed Never S moker eCW1 ([facility]) Smoking 10/09/2020 12:00:00 AM EDT Never Smoker completed Never S moker eCW1 ([facility]) Smoking 10/05/2020 12:00:00 AM EDT Never Smoker completed Never S moker eCW1 ([facility]) Vital Signs ID Date Data Source UNK Name Value Range Interpretation Code Description Data Source(s) Body height 160.02 cm 160.02 cm [facility] ([facility]) Body weight 65.227 kg 65.227 kg [facility] ([facility]) Systolic blood pressure 120 mm[Hg] 120 mm[Hg] N extGen ([facility]) Diastolic blood pressure 78 mm[Hg] 78 mm[Hg] NextGen ([facility]) Body mass index (BMI) [Ratio] 25.47 kg/m2 Overweight 25.47 kg/m2 Next[facility] ([facility]) Body weight 138 [lb_av] 138 [lb_av] eCW1 ([facility]) Body weight 62.6 kg 62.6 kg eCW1 ([facility]) Body height 63 [in_i] 63 [in_i] eCW1 ([facility]) Body mass index (BMI) [Ratio] 24.44 kg/m2 24.44 kg/m2 eCW1 ([facility]) Systolic blood pressure 118 mm[Hg] 118 mm[Hg] e CW1 ([facility]) Diastolic blood pressure 76 mm[Hg] 76 mm[Hg] eCW1 ([facility]) Body weight 137.2 [lb_av] 137.2 [lb_av] eCW1 ([facility]) Diastolic blood pressure 78 mm[Hg] 78 mm[Hg] eCW1 ([facility]) Body height 63 [in_i] 63 [in_i] eCW1 ([facility]) Body mass index (BMI) [Ratio] 24.30 kg/m2 24.30 kg/m2 eCW1 ([facility]) Systolic blood pressure 110 mm[Hg] 110 mm[Hg] e CW1 ([facility]) Body weight 140 [lb_av] 140 [lb_av] eCW1 ([facility]) Body weight 63.5 kg 63.5 kg eCW1 ([facility]) Systolic blood pressure 114 mm[Hg] 114 mm[Hg] e CW1 ([facility]) Body height 63 [in_i] 63 [in_i] eCW1 ([facility]) Body mass index (BMI) [Ratio] 24.8 kg/m2 24.8 k g/m2 eCW1 ([facility]) Diastolic blood pressure 74 mm[Hg] 74 mm[Hg] eCW1 ([facility]) Patient Treatment Plan of Care Planned Activity Planned Date Details Description Data Source (s) Metronidazole 0.0075 MG/MG Vaginal Gel [[facility]] 02/23/2021 12: 00:00 AM EDT [facility] ([facility]) Metronidazole 0.0075 MG/MG Vaginal Gel 10/15/2020 12:00:00 AM EDT eCW1 ([facility]) Terbinafine HCl 1 % 10/09/2020 12:00:00 AM EDT eCW1 ([facility]) Naftifine hydrochloride 10 MG/ML Topical Cream 10/09/2020 12:00:00 AM EDT eCW1 ([facility]) Terbinafine HCl 1 % 10/09/2020 12:00:00 AM EDT eCW1 ([facility]) Naftifine hydrochloride 10 MG/ML Topical Cream 10/09/2020 12:00:00 AM EDT eCW1 ([facility]) Fluconazole 150 MG Oral Tablet 10/05/2020 12:00:00 AM EDT eCW1 ([facility])
== END 2021-03-06 20:15 | disposition left against medical advice (07) ==
LOC: M ED 17:20
DX: Z53.29 Procedure and treatment not carried out because of patient's decision for other reasons (principal)

== ENCOUNTER → 2022-04-04 | Outpatient (CLI) | payer OTHER | LOC: M RAD 13:43 | PROVIDERS: ATTEND Physician Assistant Medical | DX: M25.561 Pain in right knee (principal) ==

== ENCOUNTER 2022-07-05 00:18 | Emergency (ER) | payer OTHER ==
[~2022-07-05] VITALS: Ht 160 cm; Wt 57.3 kg
[~2022-07-05 00:18] MED LIST changes: +LIDO15SO4 MT; -LIDO2SOL17 MT
[2022-07-05 01:00] VITALS: BP 118/72
[2022-07-05] MEDS ORDERED: BOOSTRIX/ADACEL VACCINE (DIPHTH/PERTUSS/ACELL/TETANUS) 0.5ML SYR IM.IMMUN ONE (01:30)
[2022-07-05] MEDS ORDERED: KETOROLAC 30 MG/ML 1ML VIAL IV ONE (01:30)
[2022-07-05] MEDS ORDERED: LIDOCAINE 2% W/EPINEPHRINE 20ML VIAL **PRES FREE INJ ONE (01:30)
[2022-07-05] MEDS ORDERED: BACITRACIN OINTMENT 30GM TUBE TOP ONE (02:20)
== END 2022-07-05 02:23 | disposition home or self-care (01) ==
LOC: M ED 00:18
DX: S51.011A Laceration without foreign body of right elbow, initial encounter (principal); Y92.410 Unspecified street and highway as the place of occurrence of the external cause; Z23 Encounter for immunization
CPT/HCPCS: 12002; 73080; 90471; 90715; 96374; 99283; J1885

== ENCOUNTER 2022-08-01 20:16 | Emergency (ER) | payer OTHER ==
[~2022-08-01] VITALS: Ht 160 cm; Wt 59.6 kg
[2022-08-01 20:19] VITALS: BP 111/65
== END 2022-08-01 21:38 | disposition left against medical advice (07) ==
LOC: M ED 20:16
DX: Z53.21 Procedure and treatment not carried out due to patient leaving prior to being seen by health care provider (principal)

== ENCOUNTER 2023-02-28 18:46 | Emergency (ER) | payer OTHER ==
[~2023-02-28] VITALS: Ht 160 cm; Wt 62.9 kg
[~2023-02-28 18:46] MED LIST changes: +LIDO15SO MT; -LIDO15SO4 MT
[2023-02-28 18:47] VITALS: BP 159/92; TEMP 98.9; O2SAT 100
[2023-02-28] MEDS ORDERED: ALBU8.5H (18:57)
== END 2023-02-28 19:10 | disposition left against medical advice (07) ==
LOC: M ED 18:46
DX: Z53.21 Procedure and treatment not carried out due to patient leaving prior to being seen by health care provider (principal)

== ENCOUNTER → 2023-12-14 | Outpatient (REF) | payer OTHER ==
[~2023-12-14] MED LIST changes: +ALBU8.5H; -LIDO15SO MT; +LIDO15SO8 MT
== END ==
LOC: M SFHCWAGY 08:21
PROVIDERS: ATTEND Nurse Practitioner Family
DX: Z12.4 Encounter for screening for malignant neoplasm of cervix (principal); R87.5 Abnormal microbiological findings in specimens from female genital organs

== ENCOUNTER → 2024-01-11 | Outpatient (REF) | payer OTHER | LOC: M LAB REF 12:12 | PROVIDERS: ATTEND Physician Assistant Medical | DX: B34.9 Viral infection, unspecified (principal) ==